=== PATIENT | female | born 1975 | race Caucasian/White ===

== ENCOUNTER 2018-05-21 09:45 | Emergency (ER) | payer OTHER ==
[2018-05-21] MEDS ORDERED: ASPIRIN 81 MG TABLET, CHEWABLE PO ONE (09:53)
[2018-05-21] MEDS ORDERED: NORMAL SALINE 1000 ML 1,000 ML IV ONE (10:08)
--- NOTE | 2018-05-21 10:09 | ER Document Report ---
ED Cardiac - General Stated Complaint: PALPITATIONS Time Seen by Provider: 05/21/18 09:57 Primary Care Provider: [facility] [Provider Group] - Follow up as needed ANTHONY LEE MD [ACTIVE STAFF] - Follow up tomorrow Mode of Arrival: Ambulatory Information source: Patient Notes: Patient presents complaining of palpitations frequently for the past 3 days. Patient states that the palpitations seem to present when she is at rest and resolve and improve when she is active and moving about. Patient states that she has had palpitations off and on over the past 2 months although not frequency or consistency as she has had over the past 3 days. Patient denies any chest pain, shortness of breath, cough, fever or nausea or vomiting. Patient does report a previous history of mitral valve prolapse in the past. - HPI Patient complains to provider of: Palpitations. denies: Chest pain, Chest tightness, Shortness of breath Use of: Caffeine Quality of pain: None Pain level currently: Denies Cardiac risk factors: Smoker, + Family history, Dyslipidemia. denies: Diabetes, Hypertension Positive cardiac history: No Associated symptoms: Anxiety, Palpitations. denies: Back pain, Dizziness, Heartburn, Lightheaded, Nausea/vomiting, Shortness of breath, Syncope, Weakness Exacerbated by: Denies Relieved by: Other - Activity Similar symptoms previously: Yes Recently seen / treated by doctor: No - Related Data Allergies/Adverse Reactions: Sulfa (Sulfonamide Antibiotics) Allergy (Verified 05/21/18 13:14) Past Medical History - General Information source: Patient - Social History Smoking Status: Current Every Day Smoker Smoking Education Provided: Yes Frequency of alcohol use: Occasional Drug Abuse: Marijuana Occupation: None Lives with: Family Family History: CAD - Father had stents in his 30s - Past Medical History Cardiac Medical History: Reports: Hx Hypercholesterolemia, Other - Mitral valve prolapse Denies: Hx Atrial Fibrillation Psychiatric Medical History: Reports: Hx Anxiety Past Surgical History: Reports: Hx Gynecologic Surgery - Uterine ablation, Hx Tubal Ligation Review of Systems - Review of Systems Constitutional: No symptoms reported. denies: Fever, Recent illness EENT: No symptoms reported Cardiovascular: Palpitations. denies: Chest pain, Dizziness, Lightheaded Respiratory: No symptoms reported. denies: Cough, Short of breath Gastrointestinal: No symptoms reported. denies: Abdominal pain, Nausea, Vomiting Genitourinary: No symptoms reported. denies: Dysuria Female Genitourinary: No symptoms reported Musculoskeletal: No symptoms reported. denies: Back pain, Leg swelling, Ankle swelling Skin: No symptoms reported Hematologic/Lymphatic: No symptoms reported Neurological/Psychological: No symptoms reported. denies: Headaches Physical Exam - Vital signs Vitals: Pulse Ox 99 05/21/18 09:46 - General General appearance: Appears well, Alert In distress: None - HEENT Head: Normocephalic, Atraumatic Eyes: Normal Conjunctiva: Normal Pupils: PERRL Ears: Normal External canal: Normal Tympanic membrane: Normal Nasal: Normal Mucous membranes: Normal Pharynx: Normal Neck: Normal, Supple. No: Lymphadenopathy, Meningismus, Thyroid nodule - Respiratory Respiratory status: No respiratory distress Chest status: Nontender Breath sounds: Normal. No: Rales, Rhonchi, Stridor, Wheezing Chest palpation: Normal - Cardiovascular Rhythm: Regular Heart sounds: S1 appreciated, S2 appreciated Murmur: No - Abdominal Inspection: Normal Distension: No distension Bowel sounds: Normal Tenderness: Nontender Organomegaly: No organomegaly - Back Back: Normal, Nontender. No: CVA tenderness - Extremities General upper extremity: Normal inspection, Normal ROM General lower extremity: Normal inspection, Normal ROM. No: Edema - Neurological Neuro grossly intact: Yes Cognition: Normal Weston Coma Scale Eye Opening: Spontaneous Kevin Coma Scale Verbal: Oriented Weston Coma Scale Motor: Obeys Commands Kevin Coma Scale Total: 15 - Psychological Associated symptoms: Normal affect, Normal mood - Skin Skin Temperature: Warm Skin Moisture: Dry Skin Color: Normal Course - Re-evaluation Re-evalutation: 05/21/18 15:20 Patient continues to deny any chest pain or dyspnea symptoms. Review of alarms for cardiac monitoring during her ER stay demonstrates only one episode of PVCs. Patient with no elevation in her delta troponin. Chest x-ray reviewed without any acute findings. Patient without any tachycardia or hypoxia. Patient PERC negative. Consulted with Dr. Mesa regarding patient presentation and diagno stic evaluation. Agrees with discharge plan of care and outpatient follow-up with cardiology. - Vital Signs Vital signs: Temp Pulse Resp BP Pulse Ox 98.0 F 19 137/85 H 98 05/21/18 10:31 05/21/18 15:31 05/21/18 15:31 05/21/18 15:31 - Laboratory Result Diagrams: 05/21/18 10:30 05/21/18 10:30 Laboratory results interpreted by me: 05/21/18 10:30 Chloride 109 H Calcium 10.4 H Labs- Entire Visit 05/21/18 05/21/18 05/21/18 10:30 10:30 10:30 WBC 6.7 RBC 5.05 Hgb 15.1 Hct 44.4 MCV 88 MCH 29.9 MCHC 33.9 RDW 13.7 Plt Count 247 Seg Neutrophils % 67.9 Lymphocytes % 23.9 Monocytes % 6.0 Eosinophils % 1.5 Basophils % 0.7 Absolute Neutrophils 4.6 Absolute Lymphocytes 1.6 Absolute Monocytes 0.4 Absolute Eosinophils 0.1 Absolute Basophils 0.0 Sodium 141.9 Potassium 4.2 Chloride 109 H Carbon Dioxide 26 Anion Gap 7 BUN 15 Creatinine 0.73 Est GFR ( Amer) > 60 Est GFR (Non-Af Amer) > 60 Glucose 97 Calcium 10.4 H Magnesium 2.1 Total Bilirubin 0.4 Direct Bilirubin 0.2 Neonat Total Bilirubin Not Reportable Neonat Direct Bilirubin Not Reportable Neonat Indirect Bili Not Reportable AST 22 ALT 24 Alkaline Phosphatase 82 Creatine Kinase 91 CK-MB (CK-2) 1.21 Troponin I < 0.012 Total Protein 7.8 Albumin 4.7 TSH Serum HCG, Qual 05/21/18 05/21/18 05/21/18 10:30 10:30 14:15 WBC RBC Hgb Hct MCV MCH MCHC RDW Plt Count Seg Neutrophils % Lymphocytes % Monocytes % Eosinophils % Basophils % Absolute Neutrophils Absolute Lymphocytes Absolute Monocytes Absolute Eosinophils Absolute Basophils Sodium Potassium Chloride Carbon Dioxide Anion Gap BUN Creatinine Est GFR ( Amer) Est GFR (Non-Af Amer) Glucose Calcium Magnesium Total Bilirubin Direct Bilirubin Neonat Total Bilirubin Neonat Direct Bilirubin Neonat Indirect Bili AST ALT Alkaline Phosphatase Creatine Kinase CK-MB (CK-2) Troponin I < 0.012 Total Protein Albumin TSH 2.03 Serum HCG, Qual NEGATIVE - Diagnostic Test Radiology reviewed: Reports reviewed - EKG Interpretation by Me EKG shows normal: Sinus rhythm Rhythm: PVC's Additional EKG results interpreted by me: 05/21/18 15:24 QTC 423 Discharge - Discharge Clinical Impression: Palpitations Condition: Stable Disposition: HOME, SELF-CARE Instructions: Family Physicians / Practices, Palpitations (Irregular or Rapid Heartrate) ([facility]) Additional Instructions: Return immediately for any new or worsening symptoms Followup with your primary care provider, call tomorrow to make a followup appointment Follow-up with cardiology, call today to make a follow-up appointment Referrals: ANTHONY LEE MD [ACTIVE STAFF] - [facility] [[facility] - Follow up as needed
[2018-05-21 10:51] LABS: ABSOLUTE EOSINOPHILS # (AUTO) 0.1 10^3/uL (0.0-0.6); ABSOLUTE LYMPHOCYTES (AUTO) 1.6 10^3/uL (0.5-4.7); ABSOLUTE MONOCYTES (AUTO) 0.4 10^3/uL (0.1-1.4); ABSOLUTE NEUT (AUTO) 4.6 10^3/uL (1.7-8.2); BASOPHILS % (AUTO) 0.7 % (0-2); EOSINOPHILS % (AUTO) 1.5 % (0-6); HEMATOCRIT 44.4 % (36.0-47.0); HEMOGLOBIN 15.1 g/dL (12.0-15.5); LYMPHOCYTES % (AUTO) 23.9 % (13-45); MEAN CORPUSCULAR HEMOGLOBIN 29.9 pg (27.0-33.4); MEAN CORPUSCULAR HGB CONC 33.9 g/dL (32.0-36.0); MEAN CORPUSCULAR VOLUME 88 fl (80-97); PLATELET COUNT 247 10^3/uL (150-450); RED BLOOD COUNT 5.05 10^6/uL (3.72-5.28); RED CELL DISTRIBUTION WIDTH 13.7 % (11.5-14.0); SEGMENTED NEUTROPHILS % (AUTO) 67.9 % (42-78); TOTAL CELLS COUNTED % (AUTO) 100 %; WHITE BLOOD COUNT 6.7 10^3/uL (4.0-10.5)
--- NOTE | 2018-05-21 11:06 | RADIOLOGY REPORT (SQ) ---
EXAM DESCRIPTION: CHEST SINGLE VIEW COMPLETED DATE/TIME: 05/21/2018 10:31 am REASON FOR STUDY: cp bed 10 COMPARISON: None. EXAM PARAMETERS: NUMBER OF VIEWS: One view. TECHNIQUE: Single frontal radiographic view of the chest acquired. RADIATION DOSE: NA LIMITATIONS: None. FINDINGS: LUNGS AND PLEURA: There is a calcified granuloma in the left lung base. Lung araya are o therwise clear. No consolidations or effusions. No pneumothorax. MEDIASTINUM AND HILAR STRUCTURES: No masses. Contour normal. HEART AND VASCULAR STRUCTURES: Heart normal in size. Normal vasculature. BONES: No acute findings. HARDWARE: None in the chest. OTHER: No other significant finding. IMPRESSION: NO ACUTE RADIOGRAPHIC FINDING IN THE CHEST. TECHNICAL DOCUMENTATION: JOB ID: [id number] [employer]- All Rights Reserved Reading location - IP/workstation name: [email or web address]
[2018-05-21 11:07] LABS: ALANINE AMINOTRANSFERASE 24 U/L (9-52); ALBUMIN 4.7 g/dL (3.5-5.0); ALKALINE PHOSPHATASE 82 U/L (38-126); ANION GAP 7 (5-19); ASPARTATE AMINO TRANSFERASE 22 U/L (14-36); BILIRUBIN,DIRECT 0.2 mg/dL (0.0-0.4); BILIRUBIN,TOTAL 0.4 mg/dL (0.2-1.3); BLOOD UREA NITROGEN 15 mg/dL (7-20); CALCIUM 10.4 mg/dL (8.4-10.2); CARBON DIOXIDE 26 mmol/L (22-30); CHLORIDE 109 mmol/L (98-107); CREATINE KINASE 91 U/L (30-135); GLUCOSE 97 mg/dL (75-110); POTASSIUM 4.2 mmol/L (3.6-5.0); SODIUM 141.9 mmol/L (137-145); TOTAL PROTEIN 7.8 g/dL (6.3-8.2)
[2018-05-21 11:18] LABS: CREATINE KINASE MB 1.21 ng/mL (<4.55)
[2018-05-21 11:19] LABS: TROPONIN I < 0.012 ng/mL
--- NOTE | 2018-05-21 13:02 | EKG REPORT ---
SEVERITY:- ABNORMAL ECG - SINUS RHYTHM VENTRICULAR PREMATURE COMPLEX CONSIDER ANTEROSEPTAL INFARCT BORDERLINE T ABNORMALITIES, ANTERIOR LEADS : Confirmed by: Ezekiel Scruggs MD 21-May-2018 13:02:04
[2018-05-21] MEDS ORDERED: LORAZEPAM INJ 2 MG/1 ML VIAL IV ONE (13:20)
[2018-05-21 16:06] VITALS: BP 137/85
== END 2018-05-21 15:45 | disposition home or self-care (01) ==
LOC: ER 09:45
DX: R00.2 Palpitations (principal); F17.200 Nicotine dependence, unspecified, uncomplicated; Z88.2 Allergy status to sulfonamides
CPT/HCPCS: 93005; 99285; 96361; 96374; 36415; 82553; 82550; 83735; 84443; 84703; 85025; 80053; 84484; 71045; 93010; J2060; J7030